=== PATIENT | male | born 1945 | race Asian ===

== ENCOUNTER 2018-11-22 15:13 | Inpatient (IN) | payer OTHER, MEDICAID ==
[~2018-11-22] VITALS: Ht 167.6 cm; Wt 65.8 kg
[2018-11-22 15:13] VITALS: BP_SYST 129
--- NOTE | 2018-11-22 15:13 | NUR ---
BROUGHT IN BY [facility] AND [facility]ACE DIN BED #4, TRIAGED. REPORT GIVEN TO VERONICA
--- NOTE | 2018-11-22 15:15 | NUR ---
LELA Felipe at bedside examining patient.
--- NOTE | 2018-11-22 15:20 | NUR ---
Pt AAOx3, korean speaking only, presents to ED for evaluation by Dr. Luo of abnormal labs. Elevated BUN and creatinine, and a low H&H. Pt denies complaints at this time.
[2018-11-22 15:42] LABS: BASOPHILS % (AUTO) 0.6 % (0.0-2.0); EOSINOPHILS # (AUTO) 0.3 K/uL (0.0-0.4); EOSINOPHILS % (AUTO) 4.3 % (0.0-4.0); HEMATOCRIT 39.3 % (36-54); HEMOGLOBIN 12.7 g/dL (14.0-18.0); LYMPHOCYTES # (AUTO) 1.2 K/uL (1.0-5.5); LYMPHOCYTES % (AUTO) 17.5 % (20.5-51.5); MEAN CORPUSCULAR HEMOGLOBIN 30 pg (27-31); MEAN CORPUSCULAR HGB CONC 32 % (32-36); MEAN CORPUSCULAR VOLUME 92 fL (79.0-98.0); MONOCYTES # (AUTO) 0.6 K/uL (0.0-1.0); MONOCYTES % (AUTO) 8.7 % (1.7-9.3); NEUTROPHILS # (AUTO) 4.6 K/uL (1.8-7.7); NEUTROPHILS % (AUTO) 68.9 % (40.0-70.0); PLATELET COUNT (AUTO) 226 K/uL (130-430); RED BLOOD CELL COUNT(AUTO) 4.29 MIL/uL (4.2-6.2); RED CELL DISTRIBUTION WIDTH 15.2 % (9.0-15.0); WHITE BLOOD COUNT (AUTO) 6.7 K/uL (4.8-10.8)
[2018-11-22 15:52] LABS: ANION GAP 9 (5-15); CALCIUM 8.6 mg/dL (8.4-11.0); CHLORIDE 107 mmol/L (98-107); CREATININE 2.03 mg/dL (0.55-1.30); GLUCOSE 172 mg/dL (70-99); SODIUM SERUM 141 mmol/L (136-145); UREA NITROGEN, BLOOD 40 mg/dL (8-21)
[2018-11-22 15:57] LABS: ALANINE AMINOTRANSFERASE 18 U/L (12-78); ALBUMIN 3.3 g/dL (3.4-4.8); ASPARTATE AMINOTRANSFERASE 17 U/L (10-37); TOTAL BILIRUBIN 0.3 mg/dL (0.0-1.0)
[2018-11-22 15:58] LABS: PROTHROMBIN TIME 9.9 SECS (9.5-12.5)
[2018-11-22] MEDS ORDERED: DOCU-144 PO (16:29)
[2018-11-22] MEDS ORDERED: STA120 PO (16:29)
--- NOTE | 2018-11-22 16:29 | NUR ---
Medication reconciliation completed with information provided by [facility]. Any prior medication reconciliation on file was reviewed and corrected.
--- NOTE | 2018-11-22 18:06 | NUR ---
Patient will be admitted to [facility]. Admitted to Med Surg unit. Will go to room 125B. Summary report printed. Report will be given at bedside.
--- NOTE | 2018-11-22 18:15 | NUR ---
ADMISSION NOTE Received patient from ER via gurney. Patient admitted with diagnosis of Acute or Chronic Renal Failure. Patient is awake, alert, oriented X 3.Upper Sorbian speaking ramon. Patient oriented to hospital room, call light, toileting, pain management and safety-teach back done. Patient informed that Maria C will be his nurse until 7pm and that their room number is 125-B. Call light within reach.
[2018-11-22 18:42] VITALS: BP_SYST 130
--- NOTE | 2018-11-22 19:40 | NUR ---
ROUNDS PATIENT RESTING COMFORTABLY IN BED, VITALS STABLE, NO PAIN AND DISCOMFORT NOTED. ADMISSION DONE AND DCOUMENTED. SEE FLOWSHEET. NEEDS ATTENDED TO. SAFETY MEASURES IN PLACED. BED ALARM ON. CALL LIGHT PLACED WITHIN REACH.
[2018-11-22] MEDS: NATEGLINIDE 120 MG TABLET PO SCH (21:00)
--- NOTE | 2018-11-22 21:20 | NUR ---
MEDICATION DUE MEDICATIONS GIVEN SCHEDULED, TOLERATED WELL. WILL CONTINUE TO MONITOR.
[2018-11-22] MEDS: 0.45% NACL 1,000 ML IV SCH (22:00)
[2018-11-22] MEDS: DOCUSATE SODIUM 100 MG CAPSULE PO SCH (22:00)
--- NOTE | 2018-11-23 00:14 | NUR ---
PATIENT RESTING: Patient resting quietly. No acute distress noted. Vital signs within normal range.
--- NOTE | 2018-11-23 01:09 | NUR ---
CONSULT: DR. ELLIE SALDIVAR IS HERE @ [facility] HE IS AWARE OF CONSULT FOR THIS PATIENT
--- NOTE | 2018-11-23 02:38 | NUR ---
CONSULT: CONSULT CALLED FOR DR. VERDIN I SPOKE WITH NICHOLAS JO REASON FOR CONSULT: ACUTE ON CHRONIC RENAL FAILURE REQUESTING CONSULT: [facility] PHONE NUMBER: [phone]
[2018-11-23 04:12] VITALS: BP_SYST 146
--- NOTE | 2018-11-23 04:13 | NUR ---
PATIENT RESTING: Patient resting quietly. No acute distress noted. Vital signs within normal range.
--- NOTE | 2018-11-23 06:50 | NUR ---
CLOSING NOTES PATIENT STABLE, NO COMPLAINTS AT THIS TIME. ALL NEEDS ATTENDED TO. CALL LIGHT PLACED WITHIN REACH.
[2018-11-23 07:15] LABS: BASOPHILS % (AUTO) 0.5 % (0.0-2.0); EOSINOPHILS # (AUTO) 0.2 K/uL (0.0-0.4); EOSINOPHILS % (AUTO) 3.9 % (0.0-4.0); HEMATOCRIT 39.5 % (36-54); HEMOGLOBIN 12.8 g/dL (14.0-18.0); LYMPHOCYTES # (AUTO) 1.4 K/uL (1.0-5.5); LYMPHOCYTES % (AUTO) 22.5 % (20.5-51.5); MEAN CORPUSCULAR HEMOGLOBIN 30 pg (27-31); MEAN CORPUSCULAR HGB CONC 33 % (32-36); MEAN CORPUSCULAR VOLUME 92 fL (79.0-98.0); MONOCYTES # (AUTO) 0.5 K/uL (0.0-1.0); MONOCYTES % (AUTO) 7.4 % (1.7-9.3); NEUTROPHILS # (AUTO) 4.1 K/uL (1.8-7.7); NEUTROPHILS % (AUTO) 65.7 % (40.0-70.0); PLATELET COUNT (AUTO) 236 K/uL (130-430); WHITE BLOOD COUNT (AUTO) 6.2 K/uL (4.8-10.8)
[2018-11-23 07:33] LABS: ALANINE AMINOTRANSFERASE 19 U/L (12-78); ALBUMIN 3.3 g/dL (3.4-4.8); ANION GAP 3 (5-15); ASPARTATE AMINOTRANSFERASE 15 U/L (10-37); CHLORIDE 108 mmol/L (98-107); CHOLESTEROL 211 mg/dL (<200); GLUCOSE 100 mg/dL (70-99); HDL CHOLESTEROL 33 mg/dL (>45); LDL CHOLESTEROL 147 mg/dL (<100); POTASSIUM 4.6 mmol/L (3.5-5.1); SODIUM SERUM 136 mmol/L (136-145); TOTAL BILIRUBIN 0.4 mg/dL (0.0-1.0); TRIGLYCERIDES 114 mg/dL (30-150); UREA NITROGEN, BLOOD 39 mg/dL (8-21)
--- NOTE | 2018-11-23 07:35 | NUR ---
AM ROUNDS: AWAKE DURING ROUNDS. ABLE TO UNDERSTAND BASIC BELARUSIAN. NOT IN ANY DISTRESS. CALL LIGHT WITH IN REACH. BED LOCKED AT LOWEST POSITION. BED ALARM ON.
[2018-11-23 07:55] LABS: CALCIUM 8.7 mg/dL (8.4-11.0); THYROID STIMULATING HORMONE 1.93 uIu/mL (0.36-3.74)
[2018-11-23 08:12] VITALS: BP_SYST 137
--- NOTE | 2018-11-23 09:00 | NUR ---
RN ROUNDS: STABLE. NO NEEDS THIS TIME.
--- NOTE | 2018-11-23 09:57 | NUR ---
Nutrition Update Parveen Scale 18 noted. Pt admitted for acute on chronic renal failure. Diet: 2 gm Na BMI: 23.4 kg/m2 RD to follow per nutrition care standards.
--- NOTE | 2018-11-23 10:00 | NUR ---
MED PASS: DUE PO MEDS GIVEN,WITH NO PROBLEM.
[2018-11-23] MEDS: DOCUSATE SODIUM 100 MG CAPSULE PO SCH ×2 (10:11→21:00)
[2018-11-23] MEDS: NATEGLINIDE 120 MG TABLET PO SCH ×2 (10:11→21:00)
[2018-11-23] MEDS: 0.45% NACL 1,000 ML IV SCH ×3 (10:29→21:26)
--- NOTE | 2018-11-23 12:20 | NUR ---
RN ROUNDS: PATIENT ATE LUNCH ADEQUATELY. NO OTHER COMPLAINED THIS TIME.
[2018-11-23 12:45] VITALS: BP_SYST 132
--- NOTE | 2018-11-23 14:25 | NUR ---
RN ROUNDS: PATIENT RESTING . NOT IN ANY DISTRESS.
--- NOTE | 2018-11-23 16:00 | NUR ---
RN ROUNDS: AWAKE,RESTING COMFORTABLE. NOT IN ANY DISTRESS.
[2018-11-23 16:30] VITALS: BP_SYST 102
--- NOTE | 2018-11-23 16:35 | NUR ---
URINE SAMPLE: COLLECTED URINE SAMPLE AND SEND TO LAB FOR TEST.
[2018-11-23 16:46] LABS: BILIRUBIN,URINE NEGATIVE (NEGATIVE); COLOR,URINE YELLOW (YELLOW); GLUCOSE,URINE NEGATIVE (NEGATIVE); KETONES,URINE NEGATIVE (NEGATIVE); LEUKOCYTE ESTERASE ,URINE 3+ (NEGATIVE); NITRITE, URINE NEGATIVE (NEGATIVE); PROTEIN URINE NEGATIVE (NEGATIVE); UROBILINOGEN,URINE 0.2 (0.2-1.0)
[2018-11-23 16:48] LABS: BLOOD, URINE TRACE (NEGATIVE); CLARITY/URINE SLIGHTLY HAZY (CLEAR)
[2018-11-23 16:58] LABS: BACTERIA,URINE MODERATE /HPF (None Seen); RBC,URINE 0-3 /HPF (0-3); WBC,URINE 20-50 /HPF (0-3)
[2018-11-23 18:15] LABS: ANION GAP 9 (5-15); CALCIUM 8.2 mg/dL (8.4-11.0); CHLORIDE 108 mmol/L (98-107); CREATININE 1.71 mg/dL (0.55-1.30); GLUCOSE 92 mg/dL (70-99); POTASSIUM 4.9 mmol/L (3.5-5.1); SODIUM SERUM 140 mmol/L (136-145); UREA NITROGEN, BLOOD 41 mg/dL (8-21)
--- NOTE | 2018-11-23 18:15 | NUR ---
CLOSING NOTES: PATIENT ATE DINNER INDEPENDENTLY. SEEN BY DR Sandy ARVIZU WITH ORDERS LAB TEST IN AM. CALL LIGHT WITH IN REACH. BED LOCKED AT LOWEST POSITION. BED ALARM ON. CONDITION GUARDED.
[2018-11-23 18:26] LABS: BASOPHILS % (AUTO) 0.7 % (0.0-2.0); EOSINOPHILS # (AUTO) 0.3 K/uL (0.0-0.4); EOSINOPHILS % (AUTO) 3.9 % (0.0-4.0); HEMATOCRIT 34.5 % (36-54); HEMOGLOBIN 11.6 g/dL (14.0-18.0); LYMPHOCYTES # (AUTO) 1.3 K/uL (1.0-5.5); MEAN CORPUSCULAR HEMOGLOBIN 31 pg (27-31); MEAN CORPUSCULAR HGB CONC 34 % (32-36); MEAN CORPUSCULAR VOLUME 91 fL (79.0-98.0); MONOCYTES # (AUTO) 0.6 K/uL (0.0-1.0); MONOCYTES % (AUTO) 8.6 % (1.7-9.3); NEUTROPHILS # (AUTO) 4.5 K/uL (1.8-7.7); NEUTROPHILS % (AUTO) 67.8 % (40.0-70.0); PLATELET COUNT (AUTO) 214 K/uL (130-430); RED BLOOD CELL COUNT(AUTO) 3.79 MIL/uL (4.2-6.2); RED CELL DISTRIBUTION WIDTH 14.6 % (9.0-15.0); WHITE BLOOD COUNT (AUTO) 6.7 K/uL (4.8-10.8)
--- NOTE | 2018-11-23 19:30 | NUR ---
Opening notes Received report. Patient is resting comfortably in bed. No signs of distress noted. Breathing even and unlabored. IV patent and intact, infusing fluids. No needs at this time. Call light with the patient. Safety precautions in place.
[2018-11-23 20:00] VITALS: BP_SYST 114
--- NOTE | 2018-11-23 21:30 | NUR ---
Medications Patient having loose stools. Colace held. Patient refuses to take Starlix. Educated patient the action and side effects of medications. Patient still refuses. No other needs. Call light with the patient. Safety precautions in place.
--- NOTE | 2018-11-23 22:37 | NUR ---
Moved to 134A Patient and patient belongings moved to room 134A. Patient oriented to room and call light. No signs of distress noted. Breathing even and unlabored. IVF infusing well. Call light with the patient. Safety precautions in place.
[2018-11-24 00:15] VITALS: BP_SYST 139
--- NOTE | 2018-11-24 01:00 | NUR ---
Sleeping Patient sleeping. No signs of distress noted. Breathing even and unlabored. IVF infusing well. Call light with the patient. Safety precautions in place.
[2018-11-24] MEDS: 0.45% NACL 1,000 ML IV SCH ×4 (01:25→23:41)
--- NOTE | 2018-11-24 03:41 | NUR ---
Hygiene care Incontinence care provided. Patient tolerated well. Patient able to help turn. No other needs at this time. Call light with the patient. Safety precautions in place.
--- NOTE | 2018-11-24 04:04 | NUR ---
Transfer care to ROSETTE Rausch. Patient resting comfortably in bed. No signs of distress noted. Breathing even and unlabored. IVF infusing well. Call light with the patient. Safety precautions in place.
--- NOTE | 2018-11-24 04:05 | NUR ---
NOTES: took over care from nurse Bishop.
--- NOTE | 2018-11-24 04:45 | NUR ---
NOTES: checked pt., already awake, speaks little Liberian. denies any pain. IV site patent. moves all extremities. condition observed. call ligh within reach.
--- NOTE | 2018-11-24 05:30 | NUR ---
NOTES: pt. awake, unable to go back to sleep. no complaints.
[2018-11-24 06:05] LABS: URINE SODIUM, RANDOM 56 mmol/L (40-220)
--- NOTE | 2018-11-24 06:30 | NUR ---
CLOSING NOTES; pt. awake, alert, no complaints. IVF patent. no distress. for further care and assistance. call light within reach.
[2018-11-24 07:19] LABS: BASOPHILS % (AUTO) 0.5 % (0.0-2.0); EOSINOPHILS # (AUTO) 0.2 K/uL (0.0-0.4); EOSINOPHILS % (AUTO) 3.6 % (0.0-4.0); HEMATOCRIT 36.3 % (36-54); HEMOGLOBIN 11.8 g/dL (14.0-18.0); LYMPHOCYTES # (AUTO) 1.1 K/uL (1.0-5.5); LYMPHOCYTES % (AUTO) 17.3 % (20.5-51.5); MEAN CORPUSCULAR HEMOGLOBIN 30 pg (27-31); MEAN CORPUSCULAR HGB CONC 33 % (32-36); MEAN CORPUSCULAR VOLUME 92 fL (79.0-98.0); MONOCYTES # (AUTO) 0.5 K/uL (0.0-1.0); NEUTROPHILS # (AUTO) 4.2 K/uL (1.8-7.7); NEUTROPHILS % (AUTO) 69.6 % (40.0-70.0); PLATELET COUNT (AUTO) 219 K/uL (130-430); RED BLOOD CELL COUNT(AUTO) 3.96 MIL/uL (4.2-6.2); RED CELL DISTRIBUTION WIDTH 14.8 % (9.0-15.0); WHITE BLOOD COUNT (AUTO) 6.1 K/uL (4.8-10.8)
[2018-11-24 07:49] LABS: ANION GAP 7 (5-15); CHLORIDE 105 mmol/L (98-107); CREATININE 1.57 mg/dL (0.55-1.30); GLUCOSE 83 mg/dL (70-99); PHOSPHORUS 3.2 mg/dL (2.7-4.5); POTASSIUM 4.6 mmol/L (3.5-5.1); SODIUM SERUM 135 mmol/L (136-145); UREA NITROGEN, BLOOD 39 mg/dL (8-21); URIC ACID 6.8 mg/dL (2.4-7.0)
[2018-11-24 08:00] VITALS: BP_SYST 115
--- NOTE | 2018-11-24 08:02 | NUR ---
Initial note: Patient is alert, oriented x3, denies any pain or discomfort. He is on 1/2 NS IVF at 125 ml/hr infusing well via right AC #20G, no sign of infiltration. Will continue monitor.
[2018-11-24 08:23] LABS: CALCIUM 8.3 mg/dL (8.4-11.0)
[2018-11-24] MEDS: NATEGLINIDE 120 MG TABLET PO SCH ×2 (08:25→21:23)
[2018-11-24] MEDS: DOCUSATE SODIUM 100 MG CAPSULE PO SCH ×2 (08:25→21:23)
--- NOTE | 2018-11-24 10:48 | NUR ---
BRP: Assist patient walking to the bathroom with a walker. He tolerating well, with small BM.
[2018-11-24 12:22] VITALS: BP_SYST 102
--- NOTE | 2018-11-24 13:59 | NUR ---
Bleeding from toe nail: Found patient has old blood from left 4th toe nail, no open wound noted.He denies pain. Inform the patient to be careful and will continue monitor.
[2018-11-24 16:52] VITALS: BP_SYST 108
--- NOTE | 2018-11-24 18:52 | NUR ---
Closing note: Patient is stable , no sign of distress, on 0.45% NS IVF at 125 ml/hr. Tolerating diet well, no N/V.
[2018-11-24 20:15] VITALS: BP_SYST 107
--- NOTE | 2018-11-24 20:15 | NUR ---
Opening notes Pt awake, resting in bed. VSS. No c/o pain. Incontinent of urine. Pericare provided. IVF infusing at R. AC clear and patent. Call light within reach. Bed low, locked, alarm on. To monitor.
--- NOTE | 2018-11-24 23:25 | NUR ---
Rounds Pt asleep, easily arousable. VSS. Incontinent of urine. Pericare provided. New IV bag given infusing at ordered rate at R. AC clear and patent. Call light within reach. Bed low, locked, alarm on. To monitor.
[2018-11-25 00:02] VITALS: BP_SYST 129
--- NOTE | 2018-11-25 02:30 | NUR ---
Rounds Pt asleep, easily arousable. IVF infusing at ordered rate R. AC no s/s infiltration. Call light within reach. Bed low, locked, bed alarm on. Will continue to monitor.
--- NOTE | 2018-11-25 04:40 | NUR ---
Rounds Pt asleep. No s/s distress or discomfort noted. IVF infusing at ordered rate R. AC clear and patent. Call light within reach. Bed low, locked, alarm on. To monitor.
--- NOTE | 2018-11-25 05:50 | NUR ---
Closing notes Pt awake, no s/s distress noted. Pt incontinent of urine pericare provided as needed. IVF infusing at ordered rate R. AC no s/s infiltration. Call light within reach. All needs met throughout the night. Bed maintained low, locked, bed alarm on. To endorse to AM nurse.
[2018-11-25 06:36] LABS: ANION GAP 7 (5-15); CALCIUM 8.3 mg/dL (8.4-11.0); CHLORIDE 111 mmol/L (98-107); CREATININE 1.59 mg/dL (0.55-1.30); GLUCOSE 68 mg/dL (70-99); SODIUM SERUM 141 mmol/L (136-145); UREA NITROGEN, BLOOD 34 mg/dL (8-21)
[2018-11-25] MEDS: 0.45% NACL 1,000 ML IV SCH (07:24)
[2018-11-25 07:52] VITALS: BP_SYST 123
--- NOTE | 2018-11-25 08:02 | NUR ---
OPENING NOTES, RECEIVED PT IN BED, PT IS AAOX 3. NO C/O PAIN, PT RECEIVING IV FLUIDS, NO INFILTRATION ON THE IV SITES, VITALS WNL, PT IS AFEBRILE, NO RESP DISTRESS. SAFETY PRECAUTION IN PLACE. CALL LIGHT IN REACH, BED IN LOW POSITION. WILL CONT TO MONITOR.
[2018-11-25] MEDS: NATEGLINIDE 120 MG TABLET PO SCH (09:13)
[2018-11-25] MEDS: DOCUSATE SODIUM 100 MG CAPSULE PO SCH (09:13)
[2018-11-25] MEDS ORDERED: LEVOFLOXACIN 250 MG TABLET PO SCH (10:00)
--- NOTE | 2018-11-25 10:58 | NUR ---
pt in bed, no c/o pain. stated he is alright, call light in reach. will cont to monitor.
[2018-11-25 12:48] VITALS: BP_SYST 116
[2018-11-25] MEDS ORDERED: Levaquin PO (14:48)
[2018-11-25 16:19] VITALS: BP_SYST 18
--- NOTE | 2018-11-25 16:22 | NUR ---
ARRANGED WITH [facility] TO TAKE PT BACK TO [facility], RM 24 B. SPOKE TO MARANDA. CARAMEL CUTTER MACHINE TIME IS 1730 TO 1800.
--- NOTE | 2018-11-25 16:32 | NUR ---
DC PLANNING: PATIENT IS ACCEPTED BACK AT [facility] ([facility]) AND ROOM NUMBER IS 24B
[2018-11-25 16:45] VITALS: BP_SYST 123
--- NOTE | 2018-11-25 18:18 | NUR ---
D/C Patient Patient given medication reconciliation form and D/C instructions. Exit Care provided. Patient verbalized understanding. MD discussed with patient the results and treatment provided. Ambulatory with steady gait for discharge to home. Patient in stable condition, ID band removed. IV catheter removed, intact and dressing applied, no active bleeding. Rx of given. Patient educated on pain management. All belongings sent with patient. SBAR REPORT GIVEN TO OLESYA JOVEL. Addendum: 11/25/18 at 1822 by Jean Cabral RN PT ON STABLE CONDITION ON DISCHARGE.
[2018-11-27 20:13] LABS: CREATININE, URINE 42.1 mg/dL; MICROALBUMIN URINE RANDOM 16.4 ug/ml (NOT ESTABLISHED)
== END 2018-11-25 17:55 | DRG 683 ==
LOC: SED 15:13 → SMU 17:25
PROVIDERS: ADMIT Internal Medicine; ATTEND Internal Medicine
DX: N17.0 Acute kidney failure with tubular necrosis (principal); E44.0 Moderate protein-calorie malnutrition; N39.0 Urinary tract infection, site not specified; I12.9 Hypertensive chronic kidney disease with stage 1 through stage 4 chronic kidney disease, or unspecified chronic kidney disease; D63.8 Anemia in other chronic diseases classified elsewhere; E78.5 Hyperlipidemia, unspecified; N18.2 Chronic kidney disease, stage 2 (mild); E11.22 Type 2 diabetes mellitus with diabetic chronic kidney disease; E86.0 Dehydration; Z68.23 Body mass index [BMI] 23.0-23.9, adult; Z79.84 Long term (current) use of oral hypoglycemic drugs
CPT/HCPCS: 36415; 76770; 80048; 80053; 80061; 81000-TC; 82043; 82570; 82570-TC; 83036; 83735-TC; 84100-TC; 84302-TC; 84443-TC; 84550-TC; 85025; 85610-TC; 85730-TC; 86886; 86900; 86901; 87081; 93005; 97530-GP; 99285